=== PATIENT | female | born 1945 | race Caucasian/White ===

== ENCOUNTER 2016-09-09 23:33 | Observation (INO) | payer OTHER ==
[~2016-09-09] VITALS: Ht 157.5 cm; Wt 95.6 kg
[~2016-09-09 23:33] MED LIST: ALPRAZOLAM0.25 M2 PO; AMARYL2 MG PO; AMARYL4 MG PO; AMIODARONE HCL400 MG; AMIODARONE HCL400 MG PO; AMLODIPINE BESY10 MG PO; ASPIR 8181 M1 PO; ATORVASTATIN 40 MG T; ATORVASTATIN CA40 MG PO; Amaryl PO; Aspirin E.C. PO; Aspirin PO; BAYER ASPIRIN PO; BAYER ASPIRIN325 M1 PO; BUMEX1 MG PO; CHILD ASPIRIN81 M1 PO; CIPRO500 MG PO; CONTOUR1 EACH; CYCLOBENZAPRINE5 MG PO; Cordarone, Pacerone PO; Ecotrin PO; FUROSEMIDE40 MG PO; GLUCOPHAGE1000 M1 PO; GLUCOPHAGE1000 MG; GLUCOPHAGE1000 MG PO; HYDROCODON-ACE1 EAC7 PO; HYDROCODON-ACE1 EACH PO; LEVEMIR FL100 UNIT/1 SC; LIPITOR40 MG PO; LISINOPRIL10 MG; LOPRESSOR25 MG; LOPRESSOR25 MG PO; Lipitor PO; MEDROL DOSEPAK4 MG PO; METFORMIN HCL1000 M1 PO; METFORMIN HCL1000 MG PO; METOPROLOL SUC100 MG PO; METOPROLOL SUCC50 MG PO; METOPROLOL TART25 MG; METOPROLOL TART25 MG PO; METOPROLOL TART50 MG PO; MICROZIDE12.5 M1 PO; MIRALAX255 GM PO; NAPROSYN500 MG PO; NITROSTAT0.4 MG SL; NOHOMEMEDS; PERCOCET 5/31 TABLET PO; PLAVIX75 MG; PLAVIX75 MG PO; PRAVACHOL40 MG PO; PRAVASTATIN SOD40 MG PO; PRINIVIL10 MG PO; PROMETHAZINE HC25 M1 PO; ROBITUSSIN LON118 ML PO; VALIUM5 MG PO; VALSARTAN80 MG PO; XARELTO20 MG PO; ZESTRIL,PRINIVI10 M1; ZESTRIL,PRINIVI10 M1 PO; ZOFRAN ODT4 MG PO; ZOFRAN4 MG PO
[2016-09-10 00:06] LABS: HEMATOCRIT 40.7 % (36.0-46.0); MCH 29.1 PG (29.0-34.0); MCHC 33.7 G/DL (30.0-36.0); MCV 86.4 FL (83-99); MEAN PLAT.VOLUME 10.7 uM^3 (9.5-12.4); PLATELET COUNT 204 K/uL (156-360); RBC DIS.WIDTH-CV 12.5 % (11.8-14.6); RBC DIS.WIDTH-SD 39.5 % (39-53); RED BLOOD COUNT 4.71 M/uL (3.80-5.20)
[2016-09-10 00:21] LABS: CHLORIDE 104 mEq/L (99-109); POTASSIUM 3.8 mEq/L (3.7-5.4); SODIUM 138 mEq/L (136-147)
[2016-09-10 00:24] LABS: ANION GAP 12 MEQ/L (2-14)
[2016-09-10 00:26] LABS: GFR ESTIMATE (CALCULATED) 52 mL/min/
[2016-09-10 00:27] LABS: UREA NITROGEN (BUN) 17 mg/dL (9-23)
[2016-09-10 00:33] LABS: GLUCOSE 424 mg/dL (70-99); TROP-I INTERPRETATION NEGATIVE; TROPONIN-I < 0.01 ng/mL (0.0-0.30)
[2016-09-10] MEDS ORDERED: NEURONTIN100 MG PO (01:55)
[2016-09-10] MEDS ORDERED: LOPRESSOR25 MG PO (01:55)
[2016-09-10 02:04] LABS: INFLUENZA A VIRAL ANTIGEN NEGATIVE; INFLUENZA B VIRAL ANTIGEN NEGATIVE
[2016-09-10 03:22] VITALS: BP 168/76
[2016-09-10 03:38] LABS: POINT-OF-CARE METER ID UU14162513
[2016-09-10 05:38] LABS: TROP-I INTERPRETATION NEGATIVE; TROPONIN-I < 0.01 ng/mL (0.0-0.30)
[2016-09-10 08:16] VITALS: BP 163/72
[2016-09-10 08:29] LABS: POINT-OF-CARE METER ID UU14162513
[2016-09-10 11:29] VITALS: BP 170/78
[2016-09-10 12:28] LABS: POINT-OF-CARE METER ID UU14162513
[2016-09-10 13:09] LABS: TROP-I INTERPRETATION NEGATIVE; TROPONIN-I < 0.01 ng/mL (0.0-0.30)
[2016-09-10 17:08] VITALS: BP 118/79
[2016-09-10 17:17] LABS: POINT-OF-CARE METER ID UU13113700
[2016-09-10 19:30] VITALS: BP 121/52
[2016-09-10 23:29] VITALS: BP 116/64
[2016-09-11 04:00] VITALS: BP 134/78
[2016-09-11 06:58] VITALS: BP 128/65
[2016-09-11 08:07] LABS: POINT-OF-CARE METER ID UU13113700
[2016-09-11 11:52] VITALS: BP 127/80
[2016-09-11 12:16] LABS: POINT-OF-CARE METER ID UU13113700
[2016-09-11] MEDS ORDERED: TESSALON200 MG PO (12:37)
[2016-09-11] MEDS ORDERED: VALSARTAN160 MG PO (12:37)
== END 2016-09-11 14:02 | disposition home or self-care (01) ==
LOC: EME → EDBD 23:33 → EME 23:33 → 5WEST 09-10 02:23 → EDOF 09-10 02:23 → 5WEST 09-10 03:06
PROVIDERS: Emergency Medicine; Family Medicine
DX: R07.89 Other chest pain (principal); I10 Essential (primary) hypertension; E11.65 Type 2 diabetes mellitus with hyperglycemia; I25.10 Atherosclerotic heart disease of native coronary artery without angina pectoris; I48.0 Paroxysmal atrial fibrillation; R60.0 Localized edema; R05 Cough; E66.9 Obesity, unspecified; Z68.38 Body mass index [BMI] 38.0-38.9, adult; E78.5 Hyperlipidemia, unspecified; I25.2 Old myocardial infarction; Z95.5 Presence of coronary angioplasty implant and graft
CPT/HCPCS: 71020; 80048; 82948; 84484; 85027; 87502; 93005; 99281; 99285; G0378; J1815

== ENCOUNTER 2017-06-28 10:40 | Inpatient (IN) | payer OTHER ==
[~2017-06-28] VITALS: Ht 157.5 cm; Wt 99.1 kg
[~2017-06-28 10:40] MED LIST changes: +NEURONTIN100 MG PO; +TESSALON200 MG PO; +VALSARTAN160 MG PO
[2017-06-28 11:41] LABS: BASOPHIL (%) 0.8 % (0-1); BASOPHIL COUNT 0.1 K/uL (0-0.1); EOSINOPHIL (%) 2.3 % (0-5); EOSINOPHIL COUNT 0.2 K/uL (0-0.3); HEMATOCRIT 42.3 % (36.0-46.0); IMMATURE GRANULOCYTE (%) 0.3 % (0.0-0.7); LYMPHOCYTE (%) 28.3 % (15-42); MCH 28.6 PG (29.0-34.0); MCHC 33.1 G/DL (30.0-36.0); MCV 86.3 FL (83-99); MONOCYTE (%) 8.2 % (3-12); MONOCYTE COUNT 0.6 K/uL (0-0.8); NEUTROPHIL (%) 60.1 % (45-76); NEUTROPHIL COUNT 4.3 K/uL (1.8-6.4); PLATELET COUNT 225 K/uL (156-360); RBC DIS.WIDTH-CV 13.9 % (11.8-14.6); RBC DIS.WIDTH-SD 43.4 % (39-53); WHITE BLOOD COUNT 7.1 K/uL (4.1-10.2)
[2017-06-28 11:48] LABS: PTT 29.6 SEC (25-37)
[2017-06-28 11:50] LABS: CHLORIDE 105 mEq/L (99-109); POTASSIUM 4.1 mEq/L (3.7-5.4); SODIUM 138 mEq/L (136-147)
[2017-06-28 11:51] LABS: GLUCOSE 269 mg/dL (70-99)
[2017-06-28 11:55] LABS: CREATININE 1.1 mg/dL (0.6-1.3); GFR ESTIMATE (CALCULATED) 52 mL/min/
[2017-06-28 11:56] LABS: UREA NITROGEN (BUN) 19 mg/dL (9-23)
[2017-06-28 12:03] LABS: TROP-I INTERPRETATION NEGATIVE; TROPONIN-I 0.07 ng/mL (0.0-0.30)
[2017-06-28] MEDS ORDERED: LEVEMIR FL100 UNIT/1 SC (12:59)
[2017-06-28] MEDS ORDERED: BUMETANIDE1 MG PO (13:00)
[2017-06-28] MEDS ORDERED: BAYER CHEWABLE81 MG PO (13:01)
[2017-06-28] MEDS ORDERED: METFORMIN HCL1000 MG PO (13:02)
[2017-06-28 20:10] VITALS: BP 139/88
[2017-06-28 20:19] LABS: TROP-I INTERPRETATION INDETERMINATE; TROPONIN-I 0.46 ng/mL (0.0-0.30)
[2017-06-28 23:56] VITALS: BP 139/85
[2017-06-29] VITALS (7 sets, daily range): BP systolic 90–151; BP diastolic 62–89
[2017-06-29 01:27] LABS: TROP-I INTERPRETATION POSITIVE
[2017-06-29 01:28] LABS: TROPONIN-I 0.69 ng/mL (0.0-0.30)
[2017-06-29 06:23] LABS: TROP-I INTERPRETATION POSITIVE; TROPONIN-I 0.81 ng/mL (0.0-0.30)
[2017-06-30] VITALS (7 sets, daily range): BP systolic 91–131; BP diastolic 60–85
[2017-06-30 07:55] LABS: BASOPHIL (%) 1.2 % (0-1); BASOPHIL COUNT 0.1 K/uL (0-0.1); EOSINOPHIL (%) 3.4 % (0-5); EOSINOPHIL COUNT 0.2 K/uL (0-0.3); HEMATOCRIT 43.7 % (36.0-46.0); IMMATURE GRANULOCYTE (%) 0.3 % (0.0-0.7); LYMPHOCYTE (%) 33.6 % (15-42); LYMPHOCYTE COUNT 2.3 K/uL (1.0-2.8); MCH 28.6 PG (29.0-34.0); MCV 89.2 FL (83-99); MONOCYTE (%) 7.2 % (3-12); MONOCYTE COUNT 0.5 K/uL (0-0.8); NEUTROPHIL (%) 54.3 % (45-76); NEUTROPHIL COUNT 3.6 K/uL (1.8-6.4); PLATELET COUNT 213 K/uL (156-360); RBC DIS.WIDTH-CV 14.1 % (11.8-14.6); RBC DIS.WIDTH-SD 45.2 % (39-53); WHITE BLOOD COUNT 6.7 K/uL (4.1-10.2)
[2017-06-30 08:32] LABS: CHLORIDE 104 MEQ/L (99-109); CREATININE 1.3 MG/DL (0.6-1.3); GFR ESTIMATE (CALCULATED) 43 mL/min/; GLUCOSE 165 mg/dL (70-99); POTASSIUM 4.4 MEQ/L (3.7-5.4); SODIUM 139 MEQ/L (136-147); UREA NITROGEN (BUN) 24 mg/dL (9-23)
[2017-07-01 03:39] VITALS: BP 120/56
[2017-07-01 05:44] LABS: BASOPHIL (%) 1.1 % (0-1); BASOPHIL COUNT 0.1 K/uL (0-0.1); EOSINOPHIL (%) 3.6 % (0-5); EOSINOPHIL COUNT 0.3 K/uL (0-0.3); HEMATOCRIT 43.8 % (36.0-46.0); HEMOGLOBIN 13.7 G/DL (11.9-15.5); IMMATURE GRANULOCYTE (%) 0.4 % (0.0-0.7); LYMPHOCYTE (%) 30.7 % (15-42); LYMPHOCYTE COUNT 2.2 K/uL (1.0-2.8); MCH 27.6 PG (29.0-34.0); MCHC 31.3 G/DL (30.0-36.0); MCV 88.3 FL (83-99); MONOCYTE COUNT 0.7 K/uL (0-0.8); NEUTROPHIL (%) 55.2 % (45-76); PLATELET COUNT 212 K/uL (156-360); RBC DIS.WIDTH-CV 13.9 % (11.8-14.6); RBC DIS.WIDTH-SD 44.7 % (39-53); RED BLOOD COUNT 4.96 M/uL (3.80-5.20); WHITE BLOOD COUNT 7.2 K/uL (4.1-10.2)
[2017-07-01 05:50] LABS: INTER. NORMALIZED RATIO 1.1
[2017-07-01 05:53] LABS: PTT 51.8 SEC (25-37)
[2017-07-01 06:09] LABS: CHLORIDE 106 MEQ/L (99-109); POTASSIUM 4.5 MEQ/L (3.7-5.4); SODIUM 138 MEQ/L (136-147)
[2017-07-01 06:15] LABS: CREATININE 1.2 MG/DL (0.6-1.3); GFR ESTIMATE (CALCULATED) 47 mL/min/; UREA NITROGEN (BUN) 35 mg/dL (9-23)
[2017-07-01 06:16] LABS: GLUCOSE 256 mg/dL (70-99)
[2017-07-01 07:05] VITALS: BP 122/70
[2017-07-01 11:11] VITALS: BP 105/61
[2017-07-01 16:42] VITALS: BP 106/72
[2017-07-01 20:00] VITALS: BP 132/75
[2017-07-01 23:29] VITALS: BP 117/80
[2017-07-02 03:50] VITALS: BP 115/75
[2017-07-02 06:44] LABS: BASOPHIL (%) 1.3 % (0-1); BASOPHIL COUNT 0.1 K/uL (0-0.1); EOSINOPHIL (%) 3.3 % (0-5); EOSINOPHIL COUNT 0.3 K/uL (0-0.3); HEMATOCRIT 46.8 % (36.0-46.0); HEMOGLOBIN 14.9 G/DL (11.9-15.5); IMMATURE GRANULOCYTE (%) 0.4 % (0.0-0.7); LYMPHOCYTE (%) 30.6 % (15-42); LYMPHOCYTE COUNT 2.4 K/uL (1.0-2.8); MCHC 31.8 G/DL (30.0-36.0); MONOCYTE (%) 7.3 % (3-12); MONOCYTE COUNT 0.6 K/uL (0-0.8); NEUTROPHIL (%) 57.1 % (45-76); NEUTROPHIL COUNT 4.5 K/uL (1.8-6.4); NRBC (%) 0.3 /100 WBC (0-0); PLATELET COUNT 244 K/uL (156-360); RBC DIS.WIDTH-SD 44.5 % (39-53); RED BLOOD COUNT 5.32 M/uL (3.80-5.20); WHITE BLOOD COUNT 7.9 K/uL (4.1-10.2)
[2017-07-02 07:07] LABS: CHLORIDE 104 MEQ/L (99-109); POTASSIUM 4.8 MEQ/L (3.7-5.4); SODIUM 138 MEQ/L (136-147)
[2017-07-02 07:12] LABS: CREATININE 1.2 MG/DL (0.6-1.3); GFR ESTIMATE (CALCULATED) 47 mL/min/; GLUCOSE 211 mg/dL (70-99); UREA NITROGEN (BUN) 35 mg/dL (9-23)
[2017-07-02 08:45] VITALS: BP 152/113
[2017-07-02 14:20] VITALS: BP 118/68
[2017-07-02 15:20] VITALS: BP 108/75
[2017-07-02 19:42] VITALS: BP 113/77
[2017-07-02 20:43] LABS: BASOPHIL (%) 0.7 % (0-1); BASOPHIL COUNT 0.1 K/uL (0-0.1); EOSINOPHIL (%) 2.4 % (0-5); EOSINOPHIL COUNT 0.2 K/uL (0-0.3); HEMATOCRIT 41.5 % (36.0-46.0); HEMOGLOBIN 13.6 G/DL (11.9-15.5); IMMATURE GRANULOCYTE (%) 0.4 % (0.0-0.7); LYMPHOCYTE (%) 27.8 % (15-42); LYMPHOCYTE COUNT 1.9 K/uL (1.0-2.8); MCH 28.7 PG (29.0-34.0); MCHC 32.8 G/DL (30.0-36.0); MCV 87.6 FL (83-99); MONOCYTE (%) 7.9 % (3-12); MONOCYTE COUNT 0.6 K/uL (0-0.8); NEUTROPHIL (%) 60.8 % (45-76); NEUTROPHIL COUNT 4.2 K/uL (1.8-6.4); PLATELET COUNT 182 K/uL (156-360); RBC DIS.WIDTH-CV 14.2 % (11.8-14.6); RBC DIS.WIDTH-SD 45.2 % (39-53); RED BLOOD COUNT 4.74 M/uL (3.80-5.20)
[2017-07-02 23:06] VITALS: BP 100/63
[2017-07-03 03:43] VITALS: BP 113/78
[2017-07-03 05:56] LABS: BASOPHIL (%) 1.1 % (0-1); BASOPHIL COUNT 0.1 K/uL (0-0.1); EOSINOPHIL (%) 3.5 % (0-5); EOSINOPHIL COUNT 0.2 K/uL (0-0.3); HEMATOCRIT 41.3 % (36.0-46.0); HEMOGLOBIN 12.9 G/DL (11.9-15.5); IMMATURE GRANULOCYTE (%) 0.2 % (0.0-0.7); LYMPHOCYTE (%) 23.3 % (15-42); LYMPHOCYTE COUNT 1.5 K/uL (1.0-2.8); MCH 27.6 PG (29.0-34.0); MCHC 31.2 G/DL (30.0-36.0); MCV 88.4 FL (83-99); MONOCYTE (%) 9.3 % (3-12); MONOCYTE COUNT 0.6 K/uL (0-0.8); NEUTROPHIL (%) 62.6 % (45-76); NEUTROPHIL COUNT 3.9 K/uL (1.8-6.4); PLATELET COUNT 177 K/uL (156-360); RBC DIS.WIDTH-CV 14.2 % (11.8-14.6); RBC DIS.WIDTH-SD 45.1 % (39-53); RED BLOOD COUNT 4.67 M/uL (3.80-5.20); WHITE BLOOD COUNT 6.3 K/uL (4.1-10.2)
[2017-07-03 06:19] LABS: CHLORIDE 107 MEQ/L (99-109); CREATININE 1.1 MG/DL (0.6-1.3); GFR ESTIMATE (CALCULATED) 52 mL/min/; GLUCOSE 167 mg/dL (70-99); POTASSIUM 4.1 MEQ/L (3.7-5.4); SODIUM 140 MEQ/L (136-147); UREA NITROGEN (BUN) 28 mg/dL (9-23)
[2017-07-03 06:59] VITALS: BP 116/71
[2017-07-03 11:03] VITALS: BP 107/67
[2017-07-03] MEDS ORDERED: METOPROLOL TART75 MG PO (12:44)
[2017-07-03] MEDS ORDERED: CLOPIDOGREL75 MG PO (12:44)
[2017-07-03] MEDS ORDERED: LEVEMIR100 UNIT/2 SC (12:45)
== END 2017-07-03 14:20 | disposition home or self-care (01) | DRG 246 ==
LOC: EME 10:40 → EDOF 13:44 → ENRESERV 13:50 → 5WEST 15:47 → 4EAST 06-29 07:37 → 5WEST 06-29 07:37 → ENRESERV 06-29 07:41 → 4EAST 06-29 08:05
PROVIDERS: Emergency Medicine; Family Medicine; Internal Medicine Cardiovascular Disease
DX: T82.855A Stenosis of coronary artery stent, initial encounter (principal); I21.4 Non-ST elevation (NSTEMI) myocardial infarction; E66.9 Obesity, unspecified; I25.10 Atherosclerotic heart disease of native coronary artery without angina pectoris; R13.10 Dysphagia, unspecified; I48.1 Persistent atrial fibrillation; I48.2 Chronic atrial fibrillation; I25.2 Old myocardial infarction; E78.5 Hyperlipidemia, unspecified; E11.9 Type 2 diabetes mellitus without complications; I11.0 Hypertensive heart disease with heart failure; I50.9 Heart failure, unspecified; Z79.01 Long term (current) use of anticoagulants; Y83.1 Surgical operation with implant of artificial internal device as the cause of abnormal reaction of the patient, or of later complication, without mention of misadventure at the time of the procedure; Z91.14 Patient's other noncompliance with medication regimen; K21.9 Gastro-esophageal reflux disease without esophagitis; Z79.4 Long term (current) use of insulin; Z68.39 Body mass index [BMI] 39.0-39.9, adult
CPT/HCPCS: 71045; 80048; 82948; 83880; 84484; 85025; 85025 91; 85347; 85610; 85730; 93005; 93306; 99281; 99285; C1725; C1769; C1874; C1887; G0378; J1644; J1815; J2250; J2405; J3010; J3246; J7030

== ENCOUNTER 2017-09-09 10:47 | Emergency (ER) | payer OTHER ==
[~2017-09-09] VITALS: Ht 157.5 cm; Wt 101.7 kg
[~2017-09-09 10:47] MED LIST changes: +BAYER CHEWABLE81 MG PO; +BUMETANIDE1 MG PO; +CLOPIDOGREL75 MG PO; +LEVEMIR100 UNIT/2 SC; +METOPROLOL TART75 MG PO
[2017-09-09 11:23] LABS: BASOPHIL (%) 1.4 % (0-1); BASOPHIL COUNT 0.1 K/uL (0-0.1); EOSINOPHIL (%) 2.8 % (0-5); EOSINOPHIL COUNT 0.2 K/uL (0-0.3); HEMATOCRIT 40.6 % (36.0-46.0); HEMOGLOBIN 13.3 G/DL (11.9-15.5); IMMATURE GRANULOCYTE (%) 0.3 % (0.0-0.7); LYMPHOCYTE COUNT 1.6 K/uL (1.0-2.8); MCH 28.4 PG (29.0-34.0); MCHC 32.8 G/DL (30.0-36.0); MCV 86.8 FL (83-99); MONOCYTE (%) 8.5 % (3-12); MONOCYTE COUNT 0.6 K/uL (0-0.8); PLATELET COUNT 233 K/uL (156-360); RBC DIS.WIDTH-CV 14.4 % (11.8-14.6); RBC DIS.WIDTH-SD 45.1 % (39-53); RED BLOOD COUNT 4.68 M/uL (3.80-5.20); WHITE BLOOD COUNT 6.4 K/uL (4.1-10.2)
[2017-09-09 11:37] LABS: ALBUMIN 3.7 g/dL (3.2-4.8); CHLORIDE 105 mEq/L (99-109); POTASSIUM 4.1 mEq/L (3.7-5.4); SODIUM 139 mEq/L (136-147)
[2017-09-09 11:38] LABS: MAGNESIUM 1.5 mg/dL (1.3-2.7)
[2017-09-09 11:40] LABS: GLUCOSE 334 mg/dL (70-99); TOTAL PROTEIN 7.5 g/dL (6.4-8.3)
[2017-09-09 11:42] LABS: TOTAL BILIRUBIN 1.5 mg/dL (0.0-1.0)
[2017-09-09 11:43] LABS: ALKALINE PHOSPHATASE 113 IU/L (3-129); CREATININE 1.1 mg/dL (0.6-1.3); GFR ESTIMATE (CALCULATED) 52 mL/min/
[2017-09-09 11:44] LABS: TROP-I INTERPRETATION NEGATIVE; TROPONIN-I < 0.01 ng/mL (0.0-0.30); UREA NITROGEN (BUN) 24 mg/dL (9-23)
[2017-09-09 11:45] LABS: AST (GOT) 13 IU/L (2-34)
[2017-09-09 11:46] LABS: ALT (GPT) 15 IU/L (3-49); CREATINE KINASE 95 IU/L (1-294); TOTAL CK 95 IU/L (1-294)
[2017-09-09 11:54] LABS: CK-MB 1.4 ng/mL (0.0-4.9); CKMB RELATIVE INDEX 1.5 (0.0-3.9)
[2017-09-09 14:26] LABS: TROP-I INTERPRETATION NEGATIVE; TROPONIN-I < 0.01 ng/mL (0.0-0.30)
[2017-09-09 15:38] VITALS: BP 134/98
== END 2017-09-09 15:38 | disposition home or self-care (01) ==
LOC: EME 10:47
PROVIDERS: Emergency Medicine
DX: R07.89 Other chest pain (principal); I48.91 Unspecified atrial fibrillation; I10 Essential (primary) hypertension; E78.5 Hyperlipidemia, unspecified; E11.65 Type 2 diabetes mellitus with hyperglycemia; Z79.4 Long term (current) use of insulin; I25.2 Old myocardial infarction; F32.9 Major depressive disorder, single episode, unspecified; F41.9 Anxiety disorder, unspecified; K21.9 Gastro-esophageal reflux disease without esophagitis; Z95.5 Presence of coronary angioplasty implant and graft; Z88.8 Allergy status to other drugs, medicaments and biological substances
CPT/HCPCS: 71045; 80053; 82550; 82553; 83735; 83880; 84484; 85025; 93005; 99281; 99285

== ENCOUNTER 2017-10-04 05:55 | Inpatient (IN) | payer OTHER ==
[~2017-10-04] VITALS: Ht 157.5 cm; Wt 99.7 kg
[2017-10-04 06:35] LABS: HEMATOCRIT 39.4 % (36.0-46.0); HEMOGLOBIN 12.7 G/DL (11.9-15.5); MCHC 32.2 G/DL (30.0-36.0); PLATELET COUNT 232 K/uL (156-360); RBC DIS.WIDTH-CV 14.6 % (11.8-14.6); RED BLOOD COUNT 4.53 M/uL (3.80-5.20)
[2017-10-04 07:13] LABS: TROP-I INTERPRETATION NEGATIVE; TROPONIN-I < 0.01 ng/mL (0.0-0.30)
[2017-10-04 07:20] LABS: CHLORIDE 102 MEQ/L (99-109); GFR ESTIMATE (CALCULATED) 58 mL/min/; GLUCOSE 374 mg/dL (70-99); POTASSIUM 4.4 MEQ/L (3.7-5.4); SODIUM 136 MEQ/L (136-147); UREA NITROGEN (BUN) 29 mg/dL (9-23)
[2017-10-04 09:27] VITALS: BP 102/67
[2017-10-04 11:20] VITALS: BP 112/81
[2017-10-04 12:38] LABS: TROP-I INTERPRETATION NEGATIVE; TROPONIN-I < 0.01 ng/mL (0.0-0.30)
[2017-10-04 16:41] VITALS: BP 123/76
[2017-10-04 18:28] LABS: TROP-I INTERPRETATION NEGATIVE; TROPONIN-I 0.02 ng/mL (0.0-0.30)
[2017-10-04 19:34] VITALS: BP 124/71
[2017-10-05] VITALS (7 sets, daily range): BP systolic 109–146; BP diastolic 55–70
[2017-10-06 04:08] VITALS: BP 129/61
[2017-10-06 05:45] LABS: BASOPHIL (%) 0.8 % (0-1); BASOPHIL COUNT 0.1 K/uL (0-0.1); EOSINOPHIL COUNT 0.3 K/uL (0-0.3); HEMATOCRIT 39.9 % (36.0-46.0); HEMOGLOBIN 12.4 G/DL (11.9-15.5); IMMATURE GRANULOCYTE (%) 0.1 % (0.0-0.7); LYMPHOCYTE (%) 17.1 % (15-42); LYMPHOCYTE COUNT 1.3 K/uL (1.0-2.8); MCH 27.6 PG (29.0-34.0); MCHC 31.1 G/DL (30.0-36.0); MCV 88.7 FL (83-99); MONOCYTE (%) 9.1 % (3-12); MONOCYTE COUNT 0.7 K/uL (0-0.8); NEUTROPHIL (%) 68.9 % (45-76); NEUTROPHIL COUNT 5.2 K/uL (1.8-6.4); PLATELET COUNT 226 K/uL (156-360); RBC DIS.WIDTH-CV 14.1 % (11.8-14.6); RBC DIS.WIDTH-SD 45.7 % (39-53); WHITE BLOOD COUNT 7.5 K/uL (4.1-10.2)
[2017-10-06 06:23] LABS: CHLORIDE 102 MEQ/L (99-109); CREATININE 1.3 MG/DL (0.6-1.3); GFR ESTIMATE (CALCULATED) 43 mL/min/; GLUCOSE 226 mg/dL (70-99); POTASSIUM 4.1 MEQ/L (3.7-5.4); SODIUM 140 MEQ/L (136-147); UREA NITROGEN (BUN) 36 mg/dL (9-23)
[2017-10-06 07:32] VITALS: BP 135/63
[2017-10-06 12:06] VITALS: BP 142/63
[2017-10-06] MEDS ORDERED: LOPRESSOR50 MG PO (13:10)
[2017-10-06] MEDS ORDERED: PACERONE200 MG PO (13:10)
== END 2017-10-06 14:41 | disposition home or self-care (01) | DRG 308 ==
LOC: EME 05:55 → 4EAST 08:00 → EDOF 08:00 → ENRESERV 08:21 → 4EAST 09:21
PROVIDERS: Family Medicine
PROC: 5A2204Z Restoration of Cardiac Rhythm, Single (ICD-10-PCS; principal; 2017-10-05)
DX: I48.0 Paroxysmal atrial fibrillation (principal); I11.0 Hypertensive heart disease with heart failure; I50.31 Acute diastolic (congestive) heart failure; E11.9 Type 2 diabetes mellitus without complications; I25.10 Atherosclerotic heart disease of native coronary artery without angina pectoris; K21.9 Gastro-esophageal reflux disease without esophagitis; I89.0 Lymphedema, not elsewhere classified; I25.2 Old myocardial infarction; E78.5 Hyperlipidemia, unspecified; G47.30 Sleep apnea, unspecified; E66.01 Morbid (severe) obesity due to excess calories; Z68.41 Body mass index [BMI] 40.0-44.9, adult; M54.2 Cervicalgia; R20.0 Anesthesia of skin; M79.602 Pain in left arm; R42 Dizziness and giddiness; F32.9 Major depressive disorder, single episode, unspecified; F41.9 Anxiety disorder, unspecified; Z79.4 Long term (current) use of insulin; Z82.49 Family history of ischemic heart disease and other diseases of the circulatory system; Z95.5 Presence of coronary angioplasty implant and graft
CPT/HCPCS: 71045; 80048; 82948; 83880; 84484; 85025; 85027; 93005; 99281; 99285; J1160; J1815; J1940